=== PATIENT | male | born 1955 | race Caucasian/White ===

== ENCOUNTER 2022-08-02 10:10 | Outpatient (CLI) | payer BC, SELFPAY | END 2022-08-02 10:11 | disposition home or self-care (01) | PROVIDERS: PCP Surgery; Visit Provider Internal Medicine Gastroenterology | DX: Z12.11 Encounter for screening for malignant neoplasm of colon (principal); K63.5 Polyp of colon; K57.30 Diverticulosis of large intestine without perforation or abscess without bleeding | CPT/HCPCS: 45380; 88305; J2250; J2405; J3010 ==